=== PATIENT | male | born 1960 | race Caucasian/White ===

== ENCOUNTER → 2017-10-01 08:04 | Outpatient (CLI) | payer OTHER, SELFPAY ==
[2017-10-01 10:27] LABS: Absolute Lymphocyte Count 1.84 X10^3/ul (0.83-4.51); Absolute Neutrophil Count 2.5 X10^3/uL (2.0-7.7); Basophil# 0.03 X10^3/uL; Basophil% 0.6 % (0-1); Eosinophil# 0.15 X10^3/uL; Eosinophils% 2.8 % (0-5); Hematocrit 41.5 % (40-54); Hemoglobin 14.3 g/dl (13.0-16.5); Lymphocyte # 1.84 X10^3/ul (4.0); Lymphocyte % 34.7 % (19-41); Mean Corp Hgb Conc 34.5 g/gl (32-36); Mean Corpuscular Volume 92.8 fL (80-94); Mean Platelet Vol. 10.5 fl (6.2-12.0); Monocyte# 0.75 X10^3/uL; Monocyte% 14.2 % (0-10); Neutrophil # 2.52 X10^3/uL (2.7-7.7); Neutrophil % 47.5 % (47-70); Platelet Count 268 K/mm3 (150-450); RBC Distribution Width CV 12.9 % (11.6-14.6); RBC Distribution Width SD 42.9 fl (35.1-43.9); Red Blood Count 4.47 M/mm3 (4.6-6.2); White Blood Count 5.3 K/mm3 (4.4-11.0)
[2017-10-01 10:28] LABS: POSITIVE COUNT NO; POSITIVE DIFFERENTIAL NO
[2017-10-01 10:29] LABS: POSITIVE MORPHOLOGY NO
[2017-10-01 11:01] LABS: Vitamin B12 555 pg/mL (211-911); Vitamin D,25 Hydroxy 25.9 ng/mL (29.95-100.01)
[2017-10-01 11:03] LABS: ALB/GLOB Ratio 1.2 RATIO (0.9-2.4); AST(SGOT) 33 U/L (15-37); Alanine Aminotransfer ALT/SGPT 60 U/L (16-61); Albumin, Serum 3.9 g/dL (3.2-5.0); Alkaline Phosphatase 67 U/L (45-117); Anion Gap 9 (5-15); BUN 13 mg/dL (7-18); BUN/Creat Ratio 12.1 RATIO (10-20); Calcium,Total 8.6 mg/dL (8.5-10.1); Chloride 98 mmol/L (98-107); Cholesterol 103 mg/dL (200); Creatinine, Serum 1.07 mg/dL (0.70-1.30); EST Glomerular Filtration Rate 76 mL/min (>60); Est Glom Filt Rate - Afr Amer 92 mL/min (>60); Globulin 3.2 g/dL (2.2-4.2); Glucose 217 mg/dL (74-106); High Density Lipoprotein 40 mg/dL; Iron 90 ug/dL (65-175); Protein, Total 7.1 g/dL (6.4-8.2); Sodium Level 135 mmol/L (136-145); Thyroid Stim Hormone (TSH) 1.39 uIU/mL (0.358-3.74); Triglycerides 57 mg/dL; Very Low Density Lipoprotein 11 mg/dL (5-40)
== END ==
PROVIDERS: Family Provider Family Medicine; PCP Family Medicine; Visit Provider Family Medicine
DX: E11.9 Type 2 diabetes mellitus without complications (principal); R53.83 Other fatigue
CPT/HCPCS: 36415; 80053; 80061; 82306; 82607; 83540; 84403; 84443; 85025

== ENCOUNTER → 2019-02-13 | Outpatient (CLI) | payer OTHER, SELFPAY ==
[2017-06-22 14:59] VITALS: BMI 38.6
[2019-02-13 14:13] LABS: ALB/GLOB Ratio 1.2 RATIO (0.9-2.4); AST(SGOT) 21 U/L (15-37); Alanine Aminotransfer ALT/SGPT 40 U/L (16-61); Albumin, Serum 3.8 g/dL (3.2-5.0); Alkaline Phosphatase 60 U/L (45-117); Anion Gap 5 (5-15); BUN 14 mg/dL (7-18); BUN/Creat Ratio 10.8 RATIO (10-20); Chloride 103 mmol/L (98-107); Cholesterol 123 mg/dL (200); EST Glomerular Filtration Rate 61 mL/min (>60); Est Glom Filt Rate - Afr Amer 73 mL/min (>60); Globulin 3.3 g/dL (2.2-4.2); Glucose 106 mg/dL (74-106); High Density Lipoprotein 49 mg/dL; Potassium 4.2 mmol/L (3.5-5.1); Protein, Total 7.1 g/dL (6.4-8.2); Sodium Level 138 mmol/L (136-145); Thyroid Stim Hormone (TSH) 3.09 uIU/mL (0.358-3.74); Triglycerides 97 mg/dL; Very Low Density Lipoprotein 19 mg/dL (5-40)
[2019-02-13 14:15] LABS: Vitamin D,25 Hydroxy 36.9 ng/mL (29.95-100.01)
== END | disposition home or self-care (01) ==
LOC: LAB 12:55
PROVIDERS: Family Provider Family Medicine; PCP Family Medicine; Referring Provider Family Medicine; Visit Provider Family Medicine
DX: E11.51 Type 2 diabetes mellitus with diabetic peripheral angiopathy without gangrene (principal); E55.9 Vitamin D deficiency, unspecified
CPT/HCPCS: 36415; 80053; 80061; 82306; 84403; 84443

== ENCOUNTER → 2020-02-20 | Outpatient (CLI) | payer OTHER, SELFPAY ==
[2017-06-22 14:59] VITALS: BMI 38.6
[2020-02-20 15:20] LABS: Hematocrit 51.8 % (40-54); Hemoglobin 17.3 g/dL (13.0-16.5); Mean Corp Hgb Conc 33.4 g/dL (32-36); Mean Corpuscular Hgb 31.3 pg (27.0-32.0); Mean Corpuscular Volume 93.8 fL (80-94); Mean Platelet Vol. 11.9 fl (6.2-12.0); Platelet Count 239 K/mm3 (150-450); RBC Distribution Width CV 11.8 % (11.6-14.6); RBC Distribution Width SD 40.7 fl (35.1-43.9); Red Blood Count 5.52 M/mm3 (4.6-6.2); White Blood Count 6.9 K/mm3 (4.4-11.0)
[2020-02-20 15:59] LABS: ALB/GLOB Ratio 1.3 RATIO (0.9-2.4); AST(SGOT) 27 U/L (15-37); Alanine Aminotransfer ALT/SGPT 56 U/L (16-61); Albumin, Serum 4.4 g/dL (3.2-5.0); Alkaline Phosphatase 73 U/L (45-117); Anion Gap 4 (5-15); BUN 17 mg/dL (7-18); BUN/Creat Ratio 15.5 RATIO (10-20); Calcium,Total 9.6 mg/dL (8.5-10.1); Chloride 103 mmol/L (98-107); EST Glomerular Filtration Rate 73 mL/min (>60); Est Glom Filt Rate - Afr Amer 89 mL/min (>60); Globulin 3.4 g/dL (2.2-4.2); Glucose 258 mg/dL (74-106); PSA,Total - Annual Screen 0.42 ng/mL (0.00-4.00); Potassium 4.6 mmol/L (3.5-5.1); Protein, Total 7.8 g/dL (6.4-8.2); Sodium Level 136 mmol/L (136-145); Thyroid Stim Hormone (TSH) 6.75 uIU/mL (0.358-3.74)
[2020-02-21 13:36] LABS: Vitamin D,25 Hydroxy 41.1 ng/mL
== END | disposition home or self-care (01) ==
PROVIDERS: PCP Family Medicine; Referring Provider Family Medicine; Visit Provider Family Medicine
DX: E11.51 Type 2 diabetes mellitus with diabetic peripheral angiopathy without gangrene (principal); R53.83 Other fatigue; E55.9 Vitamin D deficiency, unspecified; Z12.5 Encounter for screening for malignant neoplasm of prostate
CPT/HCPCS: 36415; 80053; 82306; 84153; 84443; 85027; G0103

== ENCOUNTER → 2020-05-15 | Outpatient (CLI) | payer OTHER, SELFPAY ==
[2017-06-22 14:59] VITALS: BMI 38.6
[2020-05-15 13:00] LABS: ALB/GLOB Ratio 1.1 RATIO (0.9-2.4); AST(SGOT) 21 U/L (15-37); Alanine Aminotransfer ALT/SGPT 45 U/L (16-61); Albumin, Serum 3.9 g/dL (3.2-5.0); Alkaline Phosphatase 74 U/L (45-117); Anion Gap 6 (5-15); BUN 19 mg/dL (7-18); BUN/Creat Ratio 16.4 RATIO (10-20); Chloride 103 mmol/L (98-107); Cholesterol 118 mg/dL (200); Creatinine, Serum 1.16 mg/dL (0.70-1.30); EST Glomerular Filtration Rate 69 mL/min (>60); Est Glom Filt Rate - Afr Amer 83 mL/min (>60); Globulin 3.7 g/dL (2.2-4.2); Glucose 155 mg/dL (74-106); High Density Lipoprotein 43 mg/dL; Potassium 4.8 mmol/L (3.5-5.1); Protein, Total 7.6 g/dL (6.4-8.2); Sodium Level 138 mmol/L (136-145); Thyroid Stim Hormone (TSH) 1.45 uIU/mL (0.358-3.74); Triglycerides 91 mg/dL; Very Low Density Lipoprotein 18 mg/dL (5-40)
== END | disposition home or self-care (01) ==
LOC: MTLAB 10:34
PROVIDERS: PCP Family Medicine; Referring Provider Family Medicine; Visit Provider Family Medicine
DX: E11.51 Type 2 diabetes mellitus with diabetic peripheral angiopathy without gangrene (principal)
CPT/HCPCS: 36415; 80053; 80061; 84443

== ENCOUNTER 2020-09-25 11:00 | Outpatient (RCR) | payer OTHER, SELFPAY | END 2020-09-29 23:59 | LOC: NS 11:00 | PROVIDERS: PCP Family Medicine; Visit Provider Family Medicine | DX: Z71.3 Dietary counseling and surveillance (principal); E66.9 Obesity, unspecified; Z68.39 Body mass index [BMI] 39.0-39.9, adult | CPT/HCPCS: 97802 ==

== ENCOUNTER 2020-10-09 08:58 | Outpatient (RCR) | payer OTHER, SELFPAY ==
[2017-06-22 14:59] VITALS: BMI 38.6
== END 2020-10-30 23:59 ==
LOC: NS 08:58
PROVIDERS: PCP Family Medicine; Visit Provider Family Medicine
DX: Z71.3 Dietary counseling and surveillance (principal); E66.9 Obesity, unspecified; Z68.39 Body mass index [BMI] 39.0-39.9, adult
CPT/HCPCS: 97803

== ENCOUNTER 2020-11-07 09:44 | Outpatient (RCR) | payer OTHER, SELFPAY ==
[2017-06-22 14:59] VITALS: BMI 38.6
== END 2020-11-29 23:59 ==
LOC: NS 09:44
PROVIDERS: PCP Family Medicine; Visit Provider Family Medicine
DX: Z71.3 Dietary counseling and surveillance (principal); E66.9 Obesity, unspecified; Z68.39 Body mass index [BMI] 39.0-39.9, adult
CPT/HCPCS: 97803

== ENCOUNTER 2020-12-18 12:10 | Outpatient (RCR) | payer OTHER, SELFPAY ==
[2017-06-22 14:59] VITALS: BMI 38.6
== END 2020-12-30 23:59 ==
LOC: NS 12:10
PROVIDERS: PCP Family Medicine; Visit Provider Family Medicine
DX: Z71.3 Dietary counseling and surveillance (principal); E66.9 Obesity, unspecified; Z68.39 Body mass index [BMI] 39.0-39.9, adult
CPT/HCPCS: 97803

== ENCOUNTER 2021-01-08 14:35 | Outpatient (RCR) | payer OTHER, SELFPAY ==
[2017-06-22 14:59] VITALS: BMI 38.6
== END 2021-01-29 23:59 ==
LOC: NS 14:35
PROVIDERS: PCP Family Medicine; Visit Provider Family Medicine
DX: Z71.3 Dietary counseling and surveillance (principal); E66.9 Obesity, unspecified; Z68.39 Body mass index [BMI] 39.0-39.9, adult
CPT/HCPCS: 97803

== ENCOUNTER 2021-02-05 10:02 | Outpatient (RCR) | payer OTHER, SELFPAY ==
[2017-06-22 14:59] VITALS: BMI 38.6
== END 2021-03-01 23:59 ==
LOC: NS 10:02
PROVIDERS: PCP Family Medicine; Visit Provider Family Medicine
DX: Z71.3 Dietary counseling and surveillance (principal); E66.9 Obesity, unspecified; Z68.39 Body mass index [BMI] 39.0-39.9, adult
CPT/HCPCS: 97803

== ENCOUNTER → 2021-02-05 11:01 | Outpatient (CLI) | payer OTHER, SELFPAY ==
[2017-06-22 14:59] VITALS: BMI 38.6
[2021-02-05 12:52] LABS: ALB/GLOB Ratio 1.1 RATIO (0.9-2.4); AST(SGOT) 21 U/L (15-37); Alanine Aminotransfer ALT/SGPT 39 U/L (16-61); Albumin, Serum 3.8 g/dL (3.2-5.0); Alkaline Phosphatase 87 U/L (45-117); Anion Gap 5 (5-15); BUN 18 mg/dL (7-18); BUN/Creat Ratio 15.7 RATIO (10-20); Calcium,Total 8.9 mg/dL (8.5-10.1); Chloride 100 mmol/L (98-107); Cholesterol 127 mg/dL (200); Creatinine, Serum 1.15 mg/dL (0.70-1.30); EST Glomerular Filtration Rate 69 mL/min (>60); Est Glom Filt Rate - Afr Amer 84 mL/min (>60); Globulin 3.4 g/dL (2.2-4.2); Glucose 223 mg/dL (74-106); High Density Lipoprotein 34 mg/dL; Potassium 4.5 mmol/L (3.5-5.1); Protein, Total 7.2 g/dL (6.4-8.2); Sodium Level 135 mmol/L (136-145); Thyroid Stim Hormone (TSH) 1.71 uIU/mL (0.358-3.74); Triglycerides 79 mg/dL; Very Low Density Lipoprotein 16 mg/dL (5-40)
[2021-02-05 12:53] LABS: Vitamin D,25 Hydroxy 34.4 ng/mL
== END ==
PROVIDERS: PCP Family Medicine; Visit Provider Family Medicine
DX: E78.00 Pure hypercholesterolemia, unspecified (principal); E11.65 Type 2 diabetes mellitus with hyperglycemia; E55.9 Vitamin D deficiency, unspecified; E03.9 Hypothyroidism, unspecified
CPT/HCPCS: 36415; 80053; 80061; 82306; 84403; 84443

== ENCOUNTER → 2021-12-12 | Outpatient (CLI) | payer OTHER, SELFPAY ==
--- NOTE | 2021-12-12 | LES_PTH ---
PATIENT: PORFIRIO FELIPE LOC: [facility] U#:[id number] AGE/SX: 61/M ROOM: RE12/12/[address]: Dr. Tony Cabrera MD : 1960 BED: DIS: 12/12/2021 SPEC #: [id number] RECD: 12/12/21 15:10 STATUS: MONTSE DIEGO #: [id number] LULU: 12/12/21 00:[address]: Tony Cabrera DEPT: SURGICAL PATHOLOGY RECD BY: Jamie Nelson Tissues: Skin of forearm, NOS Procedures: Surgery Specimen Level IV HEADER OPERATION: Excision left forearm PRE-OP DIAGNOSIS: ? SCC TISSUE SUBMITTED: Left forearm lesion MICROSCOPIC DIAGNOSIS Skin lesion of left forearm, excision: Invasive well differentiated squamous cell carcinoma, inflamed. Extensive solar elastosis. See comment. AM:[place]acho 12/16/2021 COMMENT The lesion appears to have been completely excised in the planes examined. There is no evidence of vascular or perineural invasion. Clinical correlation is suggested. Case has been reviewed in consultation with Dr. Roblero who concurs with the above diagnosis. IDC:SJ MICROSCOPIC DESCRIPTION Slides are reviewed. GROSS DESCRIPTION Received in fixative is one container labeled with the patient's name and designated left forearm. The specimen consists of a piece of dorsey-white skin ellipse measuring 4.5 x 2.2 cm and up to 0.3 cm in thickness. The specimen is inked, serially sectioned and submitted entirely in four cassettes. Cassette 1 contains the tips of the skin ellipse. / MARICARMEN:rg 12/15/2021 TC:0 CPT: 79141
== END | disposition home or self-care (01) ==
LOC: LABSPEC 15:24
PROVIDERS: PCP Family Medicine; Referring Provider Family Medicine; Visit Provider Family Medicine
DX: C76.42 Malignant neoplasm of left upper limb (principal)
CPT/HCPCS: 88305

== ENCOUNTER → 2022-03-09 | Outpatient (CLI) | payer OTHER, SELFPAY ==
[2022-03-09 12:08] LABS: Basophil# 0.07 X10^3/uL; Basophil% 0.9 % (0-1); Eosinophil# 0.26 X10^3/uL; Eosinophils% 3.3 % (0-5); Hematocrit 47.7 % (40-54); Hemoglobin 16.3 g/dL (13.0-16.5); Mean Corp Hgb Conc 34.2 g/dL (32-36); Mean Corpuscular Hgb 32.3 pg (27.0-32.0); Mean Corpuscular Volume 94.6 fL (80-94); Monocyte# 0.66 X10^3/uL; Monocyte% 8.4 % (0-10); NRBC Flagged by Analyzer 0 % (0-5); Neutrophil # 5.03 X10^3/uL (2.7-7.7); Neutrophil % 64.1 % (47-70); Platelet Count 231 K/mm3 (150-450); RBC Distribution Width CV 12.5 % (11.6-14.6); RBC Distribution Width SD 43.3 fl (35.1-43.9); Red Blood Count 5.04 M/mm3 (4.6-6.2); White Blood Count 7.8 K/mm3 (4.4-11.0)
[2022-03-09 12:31] LABS: Vitamin B12 387 pg/mL (211-911); Vitamin D,25 Hydroxy 62.6 ng/mL
[2022-03-09 12:37] LABS: AST(SGOT) 27 U/L (15-37); Alanine Aminotransfer ALT/SGPT 47 U/L (16-61); Albumin, Serum 3.6 g/dL (3.2-5.0); Alkaline Phosphatase 71 U/L (45-117); Anion Gap 5 (5-15); BUN 12 mg/dL (7-18); BUN/Creat Ratio 10.3 RATIO (10-20); Calcium,Total 8.9 mg/dL (8.5-10.1); Chloride 104 mmol/L (98-107); Cholesterol 102 mg/dL (200); Creatinine, Serum 1.17 mg/dL (0.70-1.30); EST Glomerular Filtration Rate 68 mL/min (>60); Est Glom Filt Rate - Afr Amer 82 mL/min (>60); Globulin 3.6 g/dL (2.2-4.2); Glucose 110 mg/dL (74-106); High Density Lipoprotein 44 mg/dL; Potassium 4.6 mmol/L (3.5-5.1); Protein, Total 7.2 g/dL (6.4-8.2); Sodium Level 138 mmol/L (136-145); T4 Free Direct 1.24 ng/dL (0.76-1.46); Thyroid Stim Hormone (TSH) 1.74 uIU/mL (0.358-3.74); Triglycerides 110 mg/dL; Very Low Density Lipoprotein 22 mg/dL (5-40)
== END | disposition home or self-care (01) ==
LOC: MFPLAB 09:56
PROVIDERS: PCP Family Medicine; Visit Provider Family Medicine
DX: R53.83 Other fatigue (principal); E11.9 Type 2 diabetes mellitus without complications; E03.9 Hypothyroidism, unspecified
CPT/HCPCS: 36415; 80053; 80061; 82306; 82607; 84403; 84439; 84443; 85025

== ENCOUNTER → 2022-07-03 | Outpatient (CLI) | payer OTHER, SELFPAY ==
--- NOTE | 2022-07-03 11:07 | RAD_ITS ---
INDICATION: BRONCHITIS. Patient has been feeling sick for one week. EXAMINATION/TECHNIQUE: X-RAY - XR Chest 2 Views COMPARISON: [facility] chest x-ray from 10/26/2013 FINDINGS: LINES/DEVICES: None. LUNGS: No pulmonary edema or focal airspace consolidation. No sizable pleural effusion. No pneumothorax detected. Mildly elevated right hemidiaphragm. MEDIASTINUM AND CARDIOVASCULAR STRUCTURES: Heart size within normal limits. Mediastinal contours unremarkable. BONES AND SOFT TISSUES: Skeletal degenerative changes. Status post right shoulder arthroplasty. RAD/Chest PA and Lateral IMPRESSION: No radiographic evidence of acute cardiopulmonary disease. Electronically Signed: Cyrus Danielson MD at 1:57 EST ,
== END | disposition home or self-care (01) ==
LOC: MTRAD 11:05
PROVIDERS: PCP Family Medicine; Referring Provider Family Medicine; Visit Provider Family Medicine
DX: J40 Bronchitis, not specified as acute or chronic (principal)
CPT/HCPCS: 71046

== ENCOUNTER → 2022-11-11 | Outpatient (CLI) | payer OTHER, SELFPAY ==
--- NOTE | 2022-11-11 15:22 | RAD_ITS ---
STUDY: X-RAY CHEST REASON FOR EXAM: Male, 62 years old. Fever and cough TECHNIQUE: PA and 2 lateral views of the chest. COMPARISON: None. FINDINGS: The lungs are clear and expanded. There is no demonstrated pleural abnormality. Normal size heart. Normal mediastinum and joanna. Normal visualized pulmonary arteries. Normal visualized aortic arch and descending thoracic aorta. Normal visualized thoracic spine. Replaced right glenohumeral joint free of complication There is no demonstrated abnormality of the visualized soft tissue structures of the upper abdomen. RAD/Chest PA and Lateral IMPRESSION: No acute pulmonary process Electronically Signed: Mode Villegas MD at 15:38 EDT ,
== END | disposition home or self-care (01) ==
PROVIDERS: PCP Family Medicine; Referring Provider Nurse Practitioner Family; Visit Provider Nurse Practitioner Family
DX: R05.9 Cough, unspecified (principal)
CPT/HCPCS: 71046

== ENCOUNTER → 2024-09-29 | Outpatient (CLI) | payer OTHER, SELFPAY ==
[2024-09-29 13:05] LABS: Microalbumin,Random Urine < 12.0 mg/L (NO RANGE EST.); Microalbumin:Creatinine Ratio UNABLE TO CALCULATE mg/g CRE
== END | disposition home or self-care (01) ==
LOC: LABSPEC 10:02
PROVIDERS: PCP Family Medicine; Referring Provider Family Medicine; Visit Provider Family Medicine
DX: I12.9 Hypertensive chronic kidney disease with stage 1 through stage 4 chronic kidney disease, or unspecified chronic kidney disease (principal); E13.22 Other specified diabetes mellitus with diabetic chronic kidney disease; N18.2 Chronic kidney disease, stage 2 (mild)
CPT/HCPCS: 82043; 82570

== ENCOUNTER → 2025-03-27 | Outpatient (CLI) | payer OTHER, SELFPAY ==
[2025-03-27 13:28] LABS: AST(SGOT) 24 U/L (<=37); Alanine Aminotransfer ALT/SGPT 34 U/L (<=46); Albumin, Serum 4.5 g/dL (3.4-4.8); Alkaline Phosphatase 62 U/L (40-129); Anion Gap 12 (5-15); BUN 16 mg/dL (4-19); BUN/Creat Ratio 13.4 RATIO (10-20); Calcium,Total 9.7 mg/dL (7.6-11.0); Carbon Dioxide 23.3 mmol/L (21.0-32.0); Chloride 101 mmol/L (98-108); Globulin 2.6 g/dL (2.2-4.2); Glucose 89 mg/dL (70-99); PSA,Total - Annual Screen 0.38 ng/mL (0.02-4.00); Potassium 5.1 mmol/L (3.3-5.1); Vitamin B12 467 pg/mL (180-914); Vitamin D,25 Hydroxy 42.1 ng/mL (30-100)
== END | disposition home or self-care (01) ==
LOC: MFPLAB 10:16
PROVIDERS: PCP Family Medicine; Referring Provider Family Medicine; Visit Provider Family Medicine
DX: Z12.5 Encounter for screening for malignant neoplasm of prostate (principal); E13.22 Other specified diabetes mellitus with diabetic chronic kidney disease; N18.9 Chronic kidney disease, unspecified
CPT/HCPCS: 36415; 80053; 82306; 82607; 84153; 84403; 84443; G0103

== ENCOUNTER → 2025-07-13 | Outpatient (CLI) | payer OTHER, SELFPAY ==
--- OUTSIDE RECORDS SUMMARY | 2025-07-13 07:11 | XMS RPT_ITS | CCD ---
Author Organization [facility] Care Team Providers Care Humanities Instructor Name Role Phone Rick ARGUETA, Dr. Jimenez Primary Care Provider Rick ARGUETA, Dr. Jimenez Attending Provider [phone]( [phone] Dr. Tony Cabrera MD Referring Provider Tony Cabrera Attending Unavailable Tony Cabrera Referring Unavailable Tony Cabrera Primary Care Unavailable Tony Cabrera Attending Unavailable Tony Cabrera Referring Unavailable Tony Cabrera Primary Care Unavailable Medications Current Medications Medication Drug Class(es) Dates Sig (Normalized) Sig (Original) acetaminophen 500 mg oral tablet (5 sources) Start: 06-23-2017 take 2 tablets by mouth every eight hours Acetaminophen 500 MG tablet Active 1000 mg PO EVERY 8 HOURS 90 0 June 23, 2017 1:00am Start: 06-23-2017 take 1000 mg by mout h every eight hours Acetaminophen Active 1000 MG PO EVERY 8 HOURS 90 June 23, 2017 1:00am atorvastatin 10 mg oral tablet (5 sources) HMG-CoA Reductase Inhibitor Start: 06-07-2017 take 1 tablet by mouth once daily Atorvastatin 10 MG tablet Active 10 mg PO DAILY June 07, 2017 1:00am docusate sodium 50 mg / sennosides, retirement 8.6 mg oral tablet (5 sources) Start: 06-23-2017 take 1 tablet by mouth twice daily as needed Sennosides-Docusate Sodium (Stool Softener-Stimulant Laxat) 1 TABLET tablet Active 2 {tbl} PO TWICE DAILY NEEDED as needed for Constipation 20 June 23, 2017 1:00am Take until first bowel movement, then as needed glimepiride 2 mg oral tablet (5 sources) Sulfonylurea Start: 06-07-2017 take 1 tablet by mouth once daily Glimepiride 2 MG tablet Active 2 mg PO DAILY June 07, 2017 1:00am hydroCHLOROthiazide 12.5 mg oral capsule (5 sources) Thiazide Diuretic Start: 06-07-2017 take 1 capsule by mouth once daily Hydrochlorothiazide 12.5 MG capsule Active 12.5 mg PO DAILY June 07, 2017 1:00am loratadine 10 mg oral tablet (5 sources) Start: 06-07-2017 take 1 tablet by mouth once daily as needed Loratadine (Allergy Relief (Loratadine)) 10 MG tablet Active 10 mg PO DAILY as needed for Allergies June 07, 2017 1:00am metFORMIN hydrochloride 500 mg oral tablet (5 sources) Biguanide Start: 06-07-2017 take 2 tablets by mouth twice daily at mealtime Metformin 500 MG tablet Active 1000 mg PO TWICE DAILY WITH MEALS June 07, 2017 1:00am Start: 06-07-2017 take 1000 mg by mout h twice daily at mealtime Metformin Active 1000 MG PO TWICE DAILY WITH MEALS June 07, 2017 1:00am Multivitamin (Multiple Vitamins) 1 EACH tablet (5 sources) Start: 06-07-2017 take 1 tablet by mouth once daily Multivitamin (Multiple Vitamins) 1 EACH tablet Active 1 NMA PO DAILY June 07, 2017 1:00am Start: 06-07-2017 take 1 tablet by dwayne th once daily Multivitamin (Multiple Vitamins) 1 EACH tablet Active 1 EACH PO DAILY June 07, 2017 12:00am Start: 06-07-2017 take 1 tablet by dwayne th once daily Multivitamin (Multiple Vitamins) 1 EACH tablet Active 1 EACH PO DAILY June 07, 2017 1:00am oxyCODONE hydrochloride 5 mg oral tablet (5 sources) Opioid Agonist Start: 06-23-2017 take 5-10 mg by mouth every four hours as needed for pain Oxycodone 5 MG tablet Active 5 - 10 mg PO EVERY 4 HOURS NEEDED as needed for Pain 80 0 June 23, 2017 1:00am ramipril 5 mg oral capsule (5 sources) Angiotensin Converting Enzyme Inhibitor Start: 06-07-2017 take 1 capsule by mouth once daily Ramipril 5 MG capsule Active 5 mg PO DAILY June 07, 2017 1:00am rivaroxaban 20 mg oral tablet (5 sources) Factor Xa Inhibitor Start: 06-07-2017 take 1 tablet by mouth once daily Rivaroxaban (Xarelto) 20 MG tablet Active 20 mg PO DAILY June 07, 2017 1:00am venlafaxine 75 mg oral tablet (5 sources) Serotonin and Norepinephrine Reuptake Inhibitor Start: 06-07-2017 take 3 tablets by mouth once daily Venlafaxine 75 MG tablet Active 225 mg PO DAILY June 07, 2017 1:00am Start: 06-07-2017 take 225 mg by mouth once lela y Venlafaxine Active 225 MG PO DAILY June 07, 2017 1:00am Completed/Discontinued Medications Medication Drug Class(es) Dates Sig (Normalized) Sig (Original) ibuprofen 800 mg oral tablet (5 sources) Nonsteroidal Anti-inflammatory Drug Start: 06-07-2017 End: 06-23-2017 take 1 tablet by mouth three times daily as needed for pain Ibuprofen (Motrin) 800 MG tablet Discontinued 800 mg PO 3 TIMES DAILY NEEDED as needed for Pain June 07, 2017 1:00am June 23, 2017 8:06am Problems Problem Classification Problem Date Documented Da te Episodic/Chronic Hypertension with complications and secondary hypertension (1 source) Hypertensive chronic kidney disease with stage 1 through stage 4 chronic kidney disease, or unspecified chronic kidney disease; Translations: [Hypertensive chronic kidney disease with stage 1 through stage 4 chronic kidney disease, or unspecified chronic kidney disease] Onset: 10-13-2024 Chronic Other screening for suspected conditions (not mental disorders or infectious disease) (1 source) Encounter for screening for malignant neoplasm of prostate; Translations: [Encounter for screening for malignant neoplasm of prostate] Onset: 04-03-2025 Episodic Results Test Name Value Interpretation Reference Range Facility Anion gap in Serum or Plasma Ordered By: Tony Cabrera on 03-27-2025 Anion gap [Moles/Vol] 12 mmol/L 5-15 [facility] BUN/creatinine ratioOrdered By: Tony Cabrera on 03-27-2025 Urea nitrogen/Creatinine [Mass ratio] 13.4 mg/mg 10-20 [facility] Bilirubin, totalOrdered By: Tony Cabrera on 03-27-2025 Bilirubin [Mass/Vol] 0.50 mg/dL 0.00-1.30 [facility] Carbon dioxide, total [Moles /volume] in Central venous bloodOrdered By: Tony Cabrera on 03-27-2025 CO2 [Moles/Vol] 23.3 mmol/L 21.0-32.0 [facility] Chloride assayOrdered By: Ruth Ann Cabrera on 03-27-2025 Chloride [Moles/Vol] 101 mmol/L 98-108 [facility] Comprehensive Metabolic Prof ilon 03-27-2025 Albumin [Mass/Vol] 4.5 g/dL Normal 3.4-4.8 [facility] Comment on above: Order Comment: Order Date: 09/29/24 Order Info: 785- - CMP Order Info: 3015-10 - TSH Order Info: 2856-08 - PSA Performed By: #### L [id number], [id number], [id number] #### [facility] [address] [place], [address] Albumin/Globulin [Mass ratio] 1.7 {ratio} Normal 0.9-2.4 [facility] Comment on above: Order Comment: Order Date: 09/29/24 Order Info: 785-08 - CMP Order Info: 3015-10 - TSH Order Info: 2856-08 - PSA Performed By: #### L [id number], [id number], [id number] #### [facility] [address] [place], [address] ALK PHOS 62 U/L Normal 40-129 [facility] Comment on above: Order Comment: Order Date: 09/29/24 Order Info: 785-08 - CMP Order Info: 3015-10 - TSH Order Info: 2856-08 - PSA Performed By: #### L [id number], [id number], [id number] #### [facility] [address] [place], [address] ALT [Catalytic activity/Vol] 34 U/L Normal <=46 [facility] Comment on above: Order Comment: Order Date: 09/29/24 Order Info: 785-1 - CMP Order Info: 3015-10 - TSH Order Info: 2856-08 - PSA Performed By: #### L [id number], [id number], [id number] #### [facility] [address] [place], [address] AST [Catalytic activity/Vol] 24 U/L Normal <=37 [facility] Comment on above: Order Comment: Order Date: 09/29/24 Order Info: 785-1 - CMP Order Info: 3015-10 - TSH Order Info: 1 - PSA Performed By: #### L [id number], [id number], [id number] #### [facility] [address] [place], [address] Bilirubin [Mass/Vol] 0.50 mg/dL Normal 0.00-1.30 [facility] Comment on above: Order Comment: Order Date: 09/29/24 Order Info: 785- - CMP Order Info: 3015-10 - TSH Order Info: 2856-08 - PSA Performed By: #### L [id number], [id number], [id number] #### [facility] [address] [place], [address] BUN/CRE 13.4 RATIO Normal 10-20 [facility] Comment on above: Order Comment: Order Date: 09/29/24 Order Info: 785-08 - CMP Order Info: 3015-10 - TSH Order Info: 2856-08 - PSA Performed By: #### L [id number], [id number], [id number] #### [facility] [address] [place], [address] Calcium [Mass/Vol] 9.7 mg/dL Normal 7.6-11.0 [facility] Comment on above: Order Comment: Order Date: 09/29/24 Order Info: 1 - CMP Order Info: 3015-10 - TSH Order Info: 1 - PSA Performed By: #### L [id number], [id number], [id number] #### [facility] [address] [place], [address] Chloride [Moles/Vol] 101 mmol/L Normal 98-108 [facility] Comment on above: Order Comment: Order Date: 09/29/24 Order Info: 07-1 - CMP Order Info: 3015-10 - TSH Order Info: 2856-1 - PSA Performed By: #### L [id number], [id number], [id number] #### [facility] [address] [place], [address] CO2 [Moles/Vol] 23.3 mmol/L Normal 21.0-32.0 [facility] Comment on above: Order Comment: Order Date: 09/29/24 Order Info: 785-1 - CMP Order Info: 3015-10 - TSH Order Info: 1 - PSA Performed By: #### L [id number], [id number], [id number] #### [facility] [address] [place], [address] Creatinine [Mass/Vol] 1.16 mg/dL Normal 0.70-1.20 [facility] Comment on above: Order Comment: Order Date: 09/29/24 Order Info: 1 - CMP Order Info: 3 - TSH Order Info: 1 - PSA Performed By: #### L [id number], [id number], [id number] #### [facility] [address] [place], [address] GAP 12 Normal 5-15 [facility] Comment on above: Order Comment: Order Date: 09/29/24 Order Info: 0786-1 - CMP Order Info: 3015-10 - TSH Order Info: 7-1 - PSA Performed By: #### L [id number], [id number], [id number] #### [facility] [address] [place], [address] GFR/1.73 sq M.predicted among non-blacks MDRD (S/P/Bld) [Vol rate/Area] 71 mL/min/{1.73_m2} Normal >60 [facility] Comment on above: Order Comment: Order Date: 09/29/24 Order Info: 785-08 - CMP Order Info: 3015-10 - TSH Order Info: 2856-08 - PSA Result Comment: mL/m in/1.73m2 CKD-EPI Creatinine Equation (2020) Performed By: #### L [id number], [id number], [id number] #### [facility] [address] [place], [address] Globulin (S) [Mass/Vol] 2.6 g/dL Normal 2.2-4.2 [facility] Comment on above: Order Comment: Order Date: 09/29/24 Order Info: 785-08 - CMP Order Info: 3015-10 - TSH Order Info: 2856-08 - PSA Performed By: #### L [id number], [id number], [id number] #### [facility] [address] [place], [address] Glucose [Mass/Vol] 89 mg/dL Normal 70-99 [facility] Comment on above: Order Comment: Order Date: 09/29/24 Order Info: 785-08 - CMP Order Info: 3015-10 - TSH Order Info: 2856-08 - PSA Performed By: #### L [id number], [id number], [id number] #### [facility] [address] [place], [address] Potassium [Moles/Vol] 5.1 mmol/L Normal 3.3-5.1 [facility] Comment on above: Order Comment: Order Date: 09/29/24 Order Info: 785-08 - CMP Order Info: 3015-10 - TSH Order Info: 2856-08 - PSA Performed By: #### L [id number], [id number], [id number] #### [facility] [address] [place], [address] Sodium [Moles/Vol] 136 mmol/L Normal 133-145 [facility] Comment on above: Order Comment: Order Date: 09/29/24 Order Info: 0786 - CMP Order Info: 3015-10 - TSH Order Info: 2856-08 - PSA Performed By: #### L [id number], [id number], [id number] #### [facility] [address] [place], [place], [address] T PROT 7.0 g/dL Normal 5.9-8.4 [facility] Comment on above: Order Comment: Order Date: 09/29/24 Order Info: 0786- - CMP Order Info: 3015-10 - TSH Order Info: 2856-08 - PSA Performed By: #### L [id number], [id number], [id number] #### [facility] [address] [facility] [place], [place], [address] Urea nitrogen [Mass/Vol] 16 mg/dL Normal 4-19 [facility] Comment on above: Order Comment: Order Date: 09/29/24 Order Info: 0786- - CMP Order Info: 3015-10 - TSH Order Info: 2856-08 - PSA Performed By: #### L [id number], [id number], [id number] #### [facility] [address] [facility] [place], [place], [address] Glomerular filtration rate ( GFR) estimation/1.73 sq m using serum, plasma, or whole bOrdered By: Tony Cabrera on 03-27-2025 GFR/1.73 sq M.predicted among non-blacks MDRD (S/P/Bld) [Vol rate/Area] 71 mL/min/{1.73_m2} >60 [facility] Comment on above: mL/min/1.73m2 CKD-EP I Creatinine Equation (2020) L509.3001on 03-27-2025 Testosterone [Mass/Vol] 223.00 ng/dL Low 300-720 [facility] Comment on above: Order Comment: Order Date: 09/29/24 Order Info: 0786- - CMP Order Info: 3015-10 - TSH Order Info: 2857-1 - PSA Performed By: #### L 506.1001, L503.0106, L509.3001 #### [facility] [address] [place], [address] Laboratory - Chemistry and C hemistry - challengeOrdered By: Tony Cabrera on 03-27-2025 AST [Catalytic activity/Vol] 24 U/L <38 [facility] Testosterone [Mass/Vol] 223.00 ng/dL Low 300-720 [facility] PSA,Total - Annual Screenon 03-27-2025 PSA,TOT SCREEN 0.38 ng/mL Normal 0.02-4.00 [facility] Comment on above: Order Comment: Order Date: 09/29/24 Order Info: 0786-1 - CMP Order Info: 3016-3 - TSH Order Info: 2857-1 - PSA Result Comment: This test was performed using the [employer] tPSA method. Measured values of a patient??sample can vary depending on the testing procedure used. PSA values determined on patient samples by different testing procedures cannot be used interchangeably. If there is a change in PSA assays while monitoring therapy, sequential testing should be performed to confirm baseline values. Performed By: #### L [id number], [id number], [id number] #### [facility] [address] [place], [address] Potassium measurement (mass/ volume)Ordered By: Tony Cabrera on 03-27-2025 Potassium (Unsp spec) [Mass/Vol] 5.1 mmol/L 3.3-5.1 [facility] Serum creatinine measurement (mass/volume)Ordered By: Tony Cabrera on 03-27-2025 Creatinine [Mass/Vol] 1.16 mg/dL 0.70-1.20 [facility] Serum globulin measurementOr dered By: Tony Cabrera on 03-27-2025 Globulin (S) [Mass/Vol] 2.6 g/dL 2.2-4.2 [facility] Serum glucose measurement (m ass/volume)Ordered By: Tony Cabrera on 03-27-2025 Glucose [Mass/Vol] 89 mg/dL 70-99 [facility] Serum or plasma alanine nixon otransferase (ALT) measurementOrdered By: Tony Cabrera on 03-27-2025 ALT [Catalytic activity/Vol] 34 U/L <47 [facility] Serum or plasma albumin charity urement (mass/volume)Ordered By: Tony Cabrera on 03-27-2025 Albumin [Mass/Vol] 4.5 g/dL 3.4-4.8 [facility] Serum or plasma albumin/glob ulin mass ratioOrdered By: Tony Cabrera on 03-27-2025 Albumin/Globulin [Mass ratio] 1.7 {ratio} 0.9-2.4 [facility] Serum or plasma alkaline keenan sphatase measurementOrdered By: Tony Cabrera on 03-27-2025 ALP [Catalytic activity/Vol] 62 U/L 40-129 [facility] Serum or plasma calcium charity urement (mass/volume)Ordered By: Tony Cabrera on 03-27-2025 Calcium [Mass/Vol] 9.7 mg/dL 7.6-11.0 [facility] Serum or plasma urea nitroge n measurement (mass/volume)Ordered By: Tony Cabrera on 03-27-2025 Urea nitrogen [Mass/Vol] 16 mg/dL 4-19 [facility] Sodium levelOrdered By: Hanane Cabrera on 03-27-2025 Sodium [Moles/Vol] 136 mmol/L 133-145 [facility] TSH DL <= 0.005 mIU/L QnOrde red By: Tony Cabrera on 03-27-2025 TSH Qn 1.820 uIU/mL 0.300-4.200 [facility] Thyroid Stim Hormone (TSH)on 03-27-2025 TSH 1.820 uIU/mL Normal 0.300-4.200 [facility] Comment on above: Order Comment: Order Date: 09/29/24 Order Info: 0786-1 - CMP Order Info: 3016-3 - TSH Order Info: 2857-1 - PSA Performed By: #### L [id number], L501.9520, L500.4050 #### [facility] [address] [place], [address] Total proteinOrdered By: Chapito Cabrera on 03-27-2025 Protein [Mass/Vol] 7.0 g/dL 5.9-8.4 [facility] Vitamin B12on 03-27-2025 Cobalamin (Vitamin B12) [Mass/Vol] 467 pg/mL Normal 180-914 [facility] Comment on above: Order Comment: Order Date: 09/29/24 Order Info: 0786-1 - CMP Order Info: 30101-02 - TSH Order Info: 2856-08 - PSA Performed By: #### L 506.1001, L503.0106, L509.3001 #### [facility] [address] [facility] [place], [address] Vitamin B12 ser/plasOrdered By: Tony Cabrera on 03-27-2025 Cobalamin (Vitamin B12) [Mass/Vol] 467 pg/mL 180-914 [facility] Vitamin D,25 Hydroxyon 03-27 Vitamin D 25-OH 42.1 ng/mL Normal 30-100 [facility] Comment on above: Order Comment: Order Date: 09/29/24 Order Info: 0786-1 - CMP Order Info: 3015-10 - TSH Order Info: 2856-08 - PSA Result Comment: Angi min D Status Deficiency: <20 ng/mL (50nmol/L) Insufficiency: 20-30 ng/mL (50-75 nmol/L) Sufficiency: 30-100 ng/mL (75-250 nmol/L) Toxicity: >100 ng/mL (>250 nmol/L) Performed By: #### L 506.1001, L503.0106, L509.3001 #### [facility] [address] [place], [address] Albumin DL <= 20 mg/L (U) [M ass/Vol]Ordered By: Tony Cabrera on 09-29-2024 Urine Random Microalbumin < 12.0 mg/L NO RANGE EST. [facility] Creatinine Unsp time (U) [Ma ss/Vol]Ordered By: Tony Cabrera on 09-29-2024 Creatinine (U) [Mass/Vol] 93.10 mg/dL 39-259 [facility] Microalb:Creat Ratio,Random URon 09-29-2024 Creatinine [Mass/Vol] 93.10 mg/dL Normal 39-259 [facility] Comment on above: Order Comment: Order Date: 09/29/24 Order Info: 0779-1 - MIACRE Order Info: [id number] - MIALB Performed By: #### L 502.0250 #### [facility] [address] [place], [address] MALB:CREAT UNABLE TO CALCULATE Normal [facility] Comment on above: Order Comment: Order Date: 09/29/24 Order Info: [id number]- - MIACRE Order Info: [id number] - MIALB Performed By: #### L 502.0250 #### [facility] [address] [place], [address] MICROALBUMIN,UR < 12.0 Normal NO RANGE EST. [facility] Comment on above: Order Comment: Order Date: 09/29/24 Order Info: [id number]- - MIACRE Order Info: [id number] - MIALB Performed By: #### L 502.0250 #### [facility] [address] [place], [address] Microalbumin/creat ratio urO rdered By: Tony Cabrera on 09-29-2024 Urine Microalbumin/Creatinine Ratio UNABLE TO CALCULATE mg/g CRE [facility] Absolute lymphocyte counton 03-09-2022 Lymphocytes Auto (Unsp spec) [#/Vol] 1.80 10*3/uL 0.83-4.51 [facility] Work Phone: Basophil percentageon 2021 Basophils/100 WBC (Bld) 0.9 % 0-1 [facility] Work Phone: Bilirubin [Mass/Vol] 0.50 mg/dL 0.20-1.00 [facility] Work Phone: Comment on above: For patients on eltr ombopag therapy, use of Dimension [place] TBIL is not recommended. Chloride [Moles/Vol] 104 mmol/L 98-107 [facility] Work Phone: Cholesterol [Mass/Vol] 102 mg/dL <200 [facility] Work Phone: Comment on above: <200 mg/dL Desirable 200-240 mg/dL Borderline >240 mg/dL High Risk Eosinophils/100 WBC (Bld) 3.3 % 0-5 [facility] Work Phone: Glucose [Mass/Vol] 110 mg/dL 74-106 [facility] Work Phone: Comment on above: Fasting Glucose resu lt from 100 to 125 mg/dL suggests IMPAIRED HOMEOSTASIS per A.D.A. criteria. Neutrophils (Bld) [#/Vol] 5.0 10*3/uL 2.0-7.7 [facility] Work Phone: Neutrophils/100 WBC (Bld) 64.1 % 47-70 [facility] Work Phone: Potassium [Moles/Vol] 4.6 mmol/L 3.5-5.1 [facility] Work Phone: Protein [Mass/Vol] 7.2 g/dL 6.4-8.2 [facility] Work Phone: Sodium [Moles/Vol] 138 mmol/L 136-145 [facility] Work Phone: Testosterone [Mass/Vol] 185.08 ng/dL [facility] Work Phone: Comment on above: CENTRAL 90% REFERENC E RANGES MALE AGE <50 197.44 - 669.58 ng/dL MALE AGE > or = 50 187.72 - 684.19 ng/dL FEMALE AGE <50 8.38 - 35.01 ng/dL FEMALE AGE > or = 50 <7.00 - 35.92 ng/dL Effective as of 02/25/21 Triglyceride [Mass/Vol] 110 mg/dL <199 [facility] Work Phone: Comment on above: The drugs N-Acetylcy steine and Metamizole may falsely depress this assay.Serum Triglycerides Reference Interval Normal <150 mg/dL Borderline high 150 - 199 mg/dL High 200 - 499 mg/dL Very High > or = 500 mg/dL WBC (Bld) [#/Vol] 7.8 10*3/uL 4.4-11.0 [facility] Work Phone: Blood erythrocytes count (nu mber/volume)on 03-09-2022 RBC (Bld) [#/Vol] 5.04 10*6/uL 4.6-6.2 [facility] Work Phone: Blood hemoglobin measurement (mass/volume)on 03-09-2022 Hemoglobin (Bld) [Mass/Vol] 16.3 g/dL 13.0-16.5 [facility] Work Phone: Blood lymphocytes/100 leukoc yteson 03-09-2022 Lymphocytes/100 WBC (Bld) 23.0 % 19-41 [facility] Work Phone: Blood monocytes/100 leukocyt eson 03-09-2022 Monocytes/100 WBC (Bld) 8.4 % 0-10 [facility] Work Phone: Blood platelet mean volumeon 03-09-2022 Platelet mean volume (Bld) [Entitic vol] 11.0 fL 6.2-12.0 [facility] Work Phone: Determination of erythrocyte mean corpuscular volume (MCV)on 03-09-2022 MCV (RBC) [Entitic vol] 94.6 fL 80-94 [facility] Work Phone: Hematocrit Auto (Bld) [Volum e fraction]on 03-09-2022 Hematocrit (Bld) [Volume fraction] 47.7 % 40-54 [facility] Work Phone: Laboratory - Chemistry and C hemistry - challengeon 03-09-2022 ALP [Catalytic activity/Vol] 71 U/L 45-117 [facility] Work Phone: ALT [Catalytic activity/Vol] 47 U/L 16-61 [facility] Work Phone: CO2 [Moles/Vol] 29.0 mmol/L 21.0-32.0 [facility] Work Phone: Cobalamin (Vitamin B12) [Mass/Vol] 387 pg/mL 211-911 [facility] Work Phone: Free T4 [Mass/Vol] 1.24 ng/dL 0.76-1.46 [facility] Work Phone: Globulin (S) [Mass/Vol] 3.6 g/dL 2.2-4.2 [facility] Work Phone: Urea nitrogen/Creatinine [Mass ratio] 10.3 mg/mg 10-20 [facility] Work Phone: Laboratory - Hematology and Cell countson 03-09-2022 Erythrocyte distribution width (RBC) [Entitic vol] 43.3 fL 35.1-43.9 [facility] Work Phone: Erythrocyte distribution width (RBC) [Ratio] 12.5 % 11.6-14.6 [facility] Work Phone: Immature granulocytes/100 WBC (Bld) 0.300 % 0.0-0.9 [facility] Work Phone: Comment on above: IG% - Immature Granu locytes (promyelocytes, myelocytes and metamyelocytes) > 1% indicates that a LEFT SHIFT is Present. MCH (RBC) [Entitic mass] 32.3 pg 27.0-32.0 [facility] Work Phone: Nucleated RBC/100 WBC (Bld) [Ratio] 0 % 0-5 [facility] Work Phone: MCHC Auto (RBC) [Mass/Vol]on 03-09-2022 MCHC (RBC) [Mass/Vol] 34.2 g/dL 32-36 [facility]: No Panel Informationon 03-09 Estimated GFR (MDRD) Amer 82 mL/min >60 [facility] Work Phone: Comment on above: GFR Calc Estimated GFR (MDRD) Non-Af Amer 68 mL/min >60 [facility] Work Phone: Comment on above: Non- GFR Calc Thyroid Stimulating Hormone (TSH) 1.74 uIU/mL 0.358-3.74 [facility] Work Phone: Vitamin D 25-Hydroxy 62.6 ng/mL [facility] Work Phone: Comment on above: Vitamin D 25(OH) Sta tus Range Deficiency <20 ng/mL (50nmol/L) Insufficiency 20 - 30 ng/mL (50 - 75 nmol/L) Sufficiency 30 - 100 ng/mL (75 - 250 nmol/L) Toxicity >100 ng/mL (>250 nmol/L) Platelets bldon 03-09-2022 Platelets (Bld) [#/Vol] 231 10*3/uL 150-450 [facility] Work Phone: Serum or plasma albumin charity urement (mass/volume)on 03-09-2022 Albumin [Mass/Vol] 3.6 g/dL 3.2-5.0 [facility] Work Phone: Serum or plasma albumin/glob ulin mass ratioon 03-09-2022 Albumin/Globulin [Mass ratio] 1.0 {ratio} 0.9-2.4 [facility] Work Phone: Serum or plasma calcium charity urement (mass/volume)on 03-09-2022 Calcium [Mass/Vol] 8.9 mg/dL 8.5-10.1 [facility] Work Phone: Serum or plasma cholesterol in HDL measurement (mass/volume)on 03-09-2022 Cholesterol in HDL [Mass/Vol] 44 mg/dL >40 [facility] Work Phone: Comment on above: The drugs N-Acetylcy steine and Metamizole may falsely depress this assay. Reference Range HDL <40 mg/dL Low HDL Cholesterol HDL >or= 60 mg/dL High HDL Cholesterol Serum or plasma cholesterol in VLDL measurement (mass/volume)on 03-09-2022 Cholesterol in VLDL [Mass/Vol] 22 mg/dL 5-40 [facility] Work Phone: Serum or plasma creatinine m easurement (mass/volume)on 03-09-2022 Creatinine [Mass/Vol] 1.17 mg/dL 0.70-1.30 [facility] Work Phone: Comment on above: The validity of the calculated GFR & GFRAA in patients over 70 years has not been determined. Clinical correlation is essential. Serum or plasma low density lipoprotein (LDL) cholesterol measurement (mass/volume)on 03-09-2022 Cholesterol in LDL [Mass/Vol] 36 mg/dL 0-130 [facility] Work Phone: Serum or plasma urea nitroge n measurement (mass/volume)on 03-09-2022 Urea nitrogen [Mass/Vol] 12 mg/dL 7-18 [facility] Work Phone: Thin prep Papanicolaou smear with manual screeningon 03-09-2022 Thin prep Papanicolaou smear with manual screening 27 U/L 15-37 [facility] Work Phone: Thin prep Papanicolaou smear with manual screening 5 5-15 [facility] Work Phone: Encounters Encounter Date Encounter Type Care Provider Facility Start: 03-27-2025 End: 03-27-[address] Tony Cabrera MD Work Phone: -Laboratory [facility] Start: 03-27-2025 End: 03-27-[address] Tony Cabrera MD -Laboratory [facility] Start: 03-27-2025 End: 03-27-2025 ambulatory Tony Cabrera Facility:[facility] Start: 09-29-2024 End: 09-29-[address] Tony Cabrera MD Work Phone: [facility] Work Phone: Start: 09-29-2024 End: 09-29-[address] Tony Cabrera MD -Laboratory, Specimen Work Phone: Start: 09-29-2024 End: 09-29-2024 ambulatory Tony Cabrera Facility:[facility] Start: 11-11-2022 End: 11-11-2022 ambulatory [facility] Work Phone: Start: 11-11-2022 End: 11-11-2022 Patient encounter procedure [facility] Start: 07-03-2022 End: 07-03-2022 ambulatory [facility] Work Phone: Start: 07-03-2022 End: 07-03-2022 Patient encounter procedure [facility] Start: 03-09-2022 End: 03-09-2022 Patient encounter procedure [facility] Start: 12-12-2021 End: 12-12-2021 Patient encounter procedure [facility]-Laboratory, Specimen Procedures Date Procedure Procedure Detail Performing Clinician Start: 03-27-2025 Prostate specific an tigen measurement Dr. Tony Cabrera MD Work Phone: Comment on above: This test was perfor med using the [employer] tPSA method. Measured values of a patient sample can vary depending on the testing procedure used. PSA values determined on patient samples by different testing procedures cannot be used interchangeably. If there is a change in PSA assays while monitoring therapy, sequential testing should be performed to confirm baseline values. Start: 03-27-2025 Vitamin D, 25-hydrox y measurement Dr. Tony Cabrera MD Work Phone: Comment on above: Vitamin D StatusDefi ciency: <20 ng/mL (50nmol/L)Insufficiency: 20-30 ng/mL (50-75 nmol/L)Sufficiency: 30-100 ng/mL (75-250 nmol/L)Toxicity: >100 ng/mL (>250 nmol/L) Start: 11-11-2022 Plain chest X-ray Start: 07-03-2022 Plain chest X-ray Immunizations Immunization Date Immunization Notes Care Provider [facility] 06-23-2017 influenza, injectabl e, quadrivalent, preservative free Dr. Tony Cabrera MD Work Phone: [facility] 06-23-2017 influenza, seasonal, injectable [facility] Payers Date Payer Category Payer Self-pay [id number] 2024 Unknown [id number] Unknown [id number] Unknown [id number] Social History Date Type Detail Facility Start: 06-07-2017 End: 06-07-2017 Tobacco smoking status WIIS Unknown if ever smoked [facility] Start: 1960 Sex Assigned At Male [facility] Start: 06-07-2017 [facility] Start: 10-13-2024 Sex Male (finding) [facility] Evaluation note Note Date & Type Note Facility Evaluation note No assessment information availa ble [facility] Work Phone: Reason for referral (narrative) Note Date & Type Note Facility Reason for referral (narrative) No reason for referral information available [facility] Work Phone: Chief Complaint and Reason for Visit Chief Complaint L FOREARM LESION Chief Complaint Bronchitis Advance Directives No Advanced Directives Records Found Advance Directive Response Recorded Date/ Time Living Will Yes June 23 10:31am Power of [place] Farmer Yes June 23, 2017 10:31am Advance Directive Response Recorded Date/ Time Living Will Yes June 23 9:31am Power of [place] Farmer Yes June 23, 2017 9:31am Summary Purpose Family History No Family History Records Found Additional Source Comments Goals (unrecognized section and content) Goals may be documented in a n alternate sectionGoals may be documented in an alternate sectionGoals may be documented in an alternate sectionGoals may be documented in an alternate sectionGoals may be documented in an alternate section Care Teams (unrecognized sec tion and content) Team Status: Active Member Role Status Dates Dr. Kannan Cabrera MD Family Provider Active Dr. Kannan Cabrera MD Primary Care Provider Activ e Team Status: Inactive Member Role Status Dates Dr. Kannan Cabrera MD Primary Care Provider Activ e Magdalena Vincent [employer] CLERK-C Attending Provider, Referring Pr kathleener Active Team Status: Active Member Role Status Dates Dr. Tony Cabrera MD Family Provider Active Dr. Tnoy Cabrera MD Primary Care Provider Acti ve Team Status: Inactive Member Role Status Dates Dr. Tony Cabrera MD Primary Care Provider Acti ve Start: September 29, 2024 End: September 29, 2024 Dr. Tony Cabrera MD Attending Provider Active Start: September 29, 2024 End: September 29, 2024 Dr. Tony Cabrera MD Referring Provider Active Start: September 29, 2024 End: September 29, 2024 Team Status: Active Member Role/Relationship Status Dates Dr. Tony Cabrera MD Family Provider Active Dr. Tony Cabrera MD Primary Care Provider Acti ve Team Status: Inactive Member Role/Relationship Status Dates Dr. Tony Cabrera MD Primary Care Provider Acti ve Start: March 27, 2025 End: March 27, 2025 Dr. Tony Cabrera MD Attending Provider Active Start: March 27, 2025 End: March 27, 2025 Dr. Tony Cabrera MD Referring Provider Active Start: March 27, 2025 End: March 27, 2025 (unrecognized sect ion and content) No Status Records Found INFORMATION SOURCE (unrecogn ized section and content) DATE CREATED AUTHOR 04/04/2025 [facility] FOR RECORDS PERTAINING TO PATIENTS WHO ARE OR HAVE BEEN ENROLLED IN A CHEMICAL DEPENDENCY/SUBSTANCEABUSE PROGRAM, SOME INFORMATION MAY BE OMITTED. This clinical summary was aggregated from multiple sources. Caution should be exercised in using it in the provision of clinical care. This summary normalizes information from multiple sources, and as a consequence, information in this document may materially change the coding, format and clinical context of patient data. In addition, data may be omitted in some cases. CLINICAL DECISIONS SHOULD BE BASED ON THE PRIMARY CLINICAL RECORDS. [employer] provides no warranty or guarantee of the accuracy or completeness of information in this document.
--- NOTE | 2025-07-15 13:44 | STRESSREP_ITS ---
Stress Test Report Date: 07/13/2025 Procedure: Exercise tolerance test/imaging study Indications: Fatigue, decreased exercise tolerance Consent: Per the patient Procedure: The patient exercised on a Adriano protocol for 4 minutes and 16 seconds achieving a peak heart rate of 146 bpm (92% predicted maximal heart rate) with a peak blood pressure 212/114 mmHg and a peak MET capacity of 7 METs. The baseline ECG demonstrated normal sinus rhythm. The peak exercise ECG demonstrated sinus tachycardia with no significant ischemic changes. EKG during recovery revealed no significant ischemic changes [There were no cardiac dysrhythmias pretest, during exercise, or recovery]. The functional capacity was considered normal for age. There was [no complaint of chest discomfort during exercise or recovery]. The examination was discontinued secondary to dyspnea, fatigue. Impression: 1. Technically adequate (percent predicted maximal heart rate greater than 85%) exercise tolerance test 2. Stress test is negative for exercise-induced EKG changes of ischemia 3. The test test is negative for exercise-induced chest pain 4. Functional capacity is normal for age 5. Nuclear images pending Myocardial perfusion imaging study: Technique: The patient was injected with 14.5 mCi of technetium 99m Cardiolite and subsequently rest SPECT Cardiolite nuclear imaging was obtained in the horizontal long, vertical long, and short axis views. The patient exercised on a Adriano protocol. Please see above for details. The patient was injected with 44.6 mCi of technetium 99m Cardiolite and subsequently stress SPECT Cardiolite nuclear imaging was obtained in the horizontal long, vertical long, and short axis views. A gated Cardiolite study at peak stress was obtained. Interpretation: Rest and stress SPECT Cardiolite nuclear imaging status post realignment, normalization, and attenuation correction, demonstrates no evidence of signifi cant ischemia or infarction. The gated Cardiolite study demonstrates mild septal hypokinesis. The reported LVEF is 52%. Impression: 1. There is no evidence of significant ischemia or infarction. 2. The gated Cardiolite study reports an LVEF of 52%. This note was generated with [employer] software. It may contain incorrect words, spelling, and punctuation that were not noted in checking the note before signing.
== END | disposition home or self-care (01) ==
LOC: CVS 07:09
PROVIDERS: PCP Family Medicine; Referring Provider Family Medicine; Visit Provider Family Medicine
DX: E11.9 Type 2 diabetes mellitus without complications (principal); I10 Essential (primary) hypertension; R68.89 Other general symptoms and signs; Z82.49 Family history of ischemic heart disease and other diseases of the circulatory system
CPT/HCPCS: 78452; 93017; A9500; A4216